=== PATIENT | female | born 1970 | race Caucasian/White ===

== ENCOUNTER → 2018-01-14 | Outpatient (REF) | payer OTHER ==
[2018-01-14 13:00] LABS: IRON (FE) 48 UG/DL (50-170)
== END ==
LOC: M LAB REF 12:27
DX: D56.8 Other thalassemias (principal)

== ENCOUNTER → 2018-10-16 | Outpatient (REF) | payer OTHER ==
[2018-10-16 15:48] LABS: INFLUENZA A AMPLIFICATION POSITIVE (NEGATIVE); INFLUENZA B AMPLIFICATION NEGATIVE (NEGATIVE)
== END ==
LOC: M LAB REF 15:03
PROVIDERS: ATTEND Physician Assistant
DX: J11.1 Influenza due to unidentified influenza virus with other respiratory manifestations (principal)

== ENCOUNTER 2018-11-21 10:38 | Day surgery (SDC) | payer OTHER ==
[~2018-11-21] VITALS: Ht 165.1 cm; Wt 78.0 kg
[~2018-11-21 10:38] MED LIST: CAMRTAB PO; MAXA10TA14 PO; PROP80TA PO; TOPI50TA9 PO; VITA100067 PO
[2018-11-21] MEDS ORDERED: LR 1,000 ML IV ONE (11:45)
[2018-11-21] MEDS ORDERED: fentaNYL 100 MCG/2 ML INJECTION (J3010) As Ordered ONE (12:12)
[2018-11-21] MEDS ORDERED: ONDANSETRON 4MG/2ML VIAL (J2405) As Ordered ONE (12:13)
[2018-11-21] MEDS ORDERED: MIDAZOLAM INJ 2 MG/2 ML VIAL (J2250) As Ordered ONE (12:13)
[2018-11-21] MEDS ORDERED: PROPOFOL 200 MG/20 ML VIAL As Ordered ONE ×2 (12:13→12:23)
[2018-11-21] MEDS ORDERED: dexameTHASONE 4 MG/ML 1ML VIAL (J1100) As Ordered ONE (12:13)
[2018-11-21] MEDS ORDERED: LIDOCAINE 2% INJ 100 MG/5 ML SDV (FOR ANES.) As Ordered ONE (12:13)
[2018-11-21] MEDS ORDERED: ROCURONIUM BROMIDE 50 MG/5 ML VIAL As Ordered ONE (12:13)
[2018-11-21] MEDS ORDERED: CHLOROPROCAINE 2 % INJ PRES.FREE 20 ML VIAL (J2400) As Ordered ONE (13:58)
[2018-11-21] MEDS ORDERED: KETOROLAC 60 MG/2 ML VIAL (J1885) As Ordered ONE (14:08)
[2018-11-21] MEDS ORDERED: fentaNYL 100 MCG/2 ML INJECTION (J3010) IV PRN (15:45)
[2018-11-21] MEDS ORDERED: PERCOCET 5MG/325MG TAB PO PRN (15:45)
[2018-11-21] MEDS ORDERED: ONDANSETRON 4MG/2ML VIAL (J2405) IV PRN (15:45)
[2018-11-21] MEDS ORDERED: METOCLOPRAMIDE INJ 10MG/2ML VIAL (J2765) IV PRN (15:45)
[2018-11-21] MEDS ORDERED: LR 1,000 ML IV SCH ×2 (15:45)
[2018-11-21] MEDS ORDERED: NORCO, ANEXSIA 5/325MG TABLET (HYDROcodone/ACETAMINOPHEN) PO PRN (16:00)
[2018-11-21] MEDS ORDERED: IBUPROFEN 600 MG TAB PO PRN (16:00)
[2018-11-21 17:05] VITALS: BP 152/85
--- NOTE | 2018-11-21 17:39 | RO ---
DATE OF PROCEDURE: 11/21/2018 PREOPERATIVE DIAGNOSIS AND INDICATION FOR SURGERY: Pain and bleeding. POSTOPERATIVE DIAGNOSIS: Pain and bleeding. PROCEDURE: Dilatation and curettage hysteroscopy, NovaSure ablation. SURGEON: Dr. Anderson. ANESTHESIA: Spinal. BRIEF DESCRIPTION OF PROCEDURE AND FINDINGS: Jennifer was brought to the operating room where sufficient spinal anesthesia was induced and she was prepped, draped and positioned in the usual sterile fashion with the bladder emptied and the anterior aspect of the cervix grasped with a single tooth tenaculum. The uterus was sounded to 8 with a cervical cavity length of 4 giving an endometrial cavity length of 4 which was used subsequently for the NovaSure ablation. She also was subsequently measured at a width of 4.7 but at this point we of course did not have that measurement. The cervix was carefully dilated in this retroverted uterus in order to allow introduction of the hysteroscope which was used to visualized the endometrial cavity. There were some mild overgrowth of the endometrium consistent with the patient's report and in the fundus a firm lesion less than a cm across which appears to be a fibroid projecting slightly into the endometrial cavity from the fundus. Pictures of this were taken. There were normal ostia and the overgrowth did not appear hypervascular or abnormal in any way, just consistent with the bleeding. Curettage was carried out and then the NovaSure ablative device was placed and again length measured at 4 width at 4.7 and an uncomplicated NovaSure ablation was carried out. Procedure was then ended. ESTIMATED BLOOD LOSS: About 3 mL. FLUID REPLACEMENT: Crystalloid. COMPLICATIONS: None. CONDITION AND DISPOSITION: Jennifer tolerated the procedure well and was recovering in the recovery room in good condition.
== END 2018-11-21 17:05 | disposition home or self-care (01) ==
LOC: M SDC 10:38
PROVIDERS: ATTEND Obstetrics & Gynecology
DX: N92.0 Excessive and frequent menstruation with regular cycle (principal); R10.2 Pelvic and perineal pain; G43.909 Migraine, unspecified, not intractable, without status migrainosus; Z79.899 Other long term (current) drug therapy; Z89.211 Acquired absence of right upper limb below elbow
CPT/HCPCS: 58563; 88305; J1100; J1885; J2250; J2400; J2405; J3010

== ENCOUNTER → 2021-01-10 | Outpatient (REF) | payer OTHER | LOC: M LAB REF 11:59 | PROVIDERS: ATTEND Nurse Practitioner Adult Health | DX: R53.83 Other fatigue (principal) ==

== ENCOUNTER → 2022-07-19 | Outpatient (REF) | payer OTHER ==
[~2022-07-19] MED LIST changes: -MAXA10TA14 PO; +RIZA10TA64 PO
[2022-07-19 17:54] LABS: FOLLICLE STIMULATING HORMONE 9.5 mIU/ML
== END ==
LOC: M LAB REF 16:06
PROVIDERS: ATTEND Nurse Practitioner Adult Health
DX: N92.6 Irregular menstruation, unspecified (principal)

== ENCOUNTER → 2023-10-25 | Outpatient (CLI) | payer OTHER ==
[~2023-10-25] MED LIST changes: +TOPI-21 PO; -TOPI50TA9 PO
== END ==
LOC: M EKG 10:05
PROVIDERS: ATTEND Nurse Practitioner Adult Health
DX: R55 Syncope and collapse (principal)

== ENCOUNTER → 2024-12-30 | Outpatient (REF) | payer OTHER ==
[2024-12-30 17:54] LABS: FOLLICLE STIMULATING HORMONE 40.3 mIU/ML
[2024-12-30 17:55] LABS: LUTEINIZING HORMONE 18.2 mIU/ML
== END ==
LOC: M LAB REF 17:30
PROVIDERS: ATTEND Nurse Practitioner Adult Health
DX: E28.310 Symptomatic premature menopause (principal)